=== PATIENT | female | born 1965 | race Caucasian/White ===

== ENCOUNTER 2020-03-19 04:14 | Observation (INO) | payer OTHER ==
[~2020-03-19] VITALS: Ht 157.5 cm; Wt 71.8 kg
--- NOTE | 2020-03-19 04:49 | NUR ---
55/F. Pt starting vomitting around 0100. Abd pain mid-epigastric region. Denies diarrhea. Pt reports chills.
[2020-03-19] MEDS ORDERED: SODIUM CHLORIDE FLUSH 10ML SYR IVF ONE (05:00)
[2020-03-19] MEDS ORDERED: MORPHINE SULFATE 4 MG/ML, 1ML IVPush PRN ×2 (05:00→07:30)
[2020-03-19] MEDS ORDERED: SODIUM CHLORIDE 0.9% 1,000ML IVBOLUS ONE (05:00)
[2020-03-19] MEDS ORDERED: ONDANSETRON 2MG/ML, 2ML IVPush ONE (05:00)
[2020-03-19] MEDS ORDERED: MORPHINE SULFATE 4 MG/ML, 1ML ONE ×2 (05:23→07:34)
[2020-03-19] MEDS ORDERED: ONDANSETRON 2MG/ML, 2ML ONE ×2 (05:23→11:37)
[2020-03-19 05:34] LABS: ALBUMIN 4.2 g/dL (3.4-5.0); ANION GAP 7 mmol/L (5-15); CHLORIDE 106 mmol/L (98-107)
[2020-03-19 05:38] LABS: ALANINE AMINOTRANSFERASE 48 U/L (12-78); ALKALINE PHOSPHATASE 129 U/L (45-117); BILIRUBIN,TOTAL 0.5 mg/dL (0.2-1.0); CREATININE 0.89 mg/dL (0.55-1.02); TOTAL PROTEIN 8.3 g/dL (6.4-8.2)
[2020-03-19 05:48] LABS: BASOPHILS # (AUTO) 0.03 x10^3/uL (0-0.1); BASOPHILS % (AUTO) 0 % (0-1); EOSINOPHILS # (AUTO) 0.01 x10^3/uL (0-0.4); EOSINOPHILS % (AUTO) 0 % (1-7); LYMPHOCYTES # (AUTO) 1.66 x10^3/uL (1-3.4); LYMPHOCYTES % (AUTO) 14 % (22-44); MD NO; MEAN CORPUSCULAR HGB CONC 32.6 g/dL (32.4-35.8); MEAN PLATELET VOLUME 8.4 fL (7.4-10.4); MONOCYTES # (AUTO) 0.22 x10^3/uL (0.2-0.8); MONOCYTES % (AUTO) 2 % (2-9); NEUTROPHILS # (AUTO) 10.21 x10^3/uL (1.8-6.8); NEUTROPHILS % (AUTO) 84 % (42-75); PLATELET COUNT 239 x10^3/uL (130-400); RED BLOOD COUNT 5.59 x10^6/uL (3.82-5.3)
[2020-03-19] MEDS ORDERED: SODIUM CHLORIDE 0.9% 1,000 ML IV ONE (07:10)
[2020-03-19] MEDS ORDERED: SODIUM CHLORIDE FLUSH 10ML SYR IVF PRN (07:30)
[2020-03-19] MEDS ORDERED: CEFOTETAN PMX 1GM/50ML 50 ML IV ONE (07:30)
[2020-03-19] MEDS ORDERED: ONDANSETRON 2MG/ML, 2ML IVPush PRN ×3 (07:30→15:30)
[2020-03-19] MEDS ORDERED: CEFOTETAN PMX 1GM/50ML 50 ML ONE (07:33)
[2020-03-19] MEDS ORDERED: METOCLOPRAMIDE 5 MG/ML, 2ML ONE (07:36)
[2020-03-19 07:47] LABS: MICROSCOPIC AUTO
[2020-03-19] MEDS ORDERED: METOCLOPRAMIDE 5 MG/ML, 2ML IVPush ONE (08:00)
[2020-03-19 09:53] VITALS: BP 164/81
[2020-03-19] MEDS ORDERED: IBUP-1623 PO (10:00)
[2020-03-19] MEDS ORDERED: [UNRECOGNIZED DRUG - OTHER] PO (10:00)
[2020-03-19] MEDS ORDERED: CARDIO PO (10:00)
[2020-03-19] MEDS ORDERED: MIDAZOLAM 1 MG/ML, 2ML ONE (11:36)
[2020-03-19] MEDS ORDERED: FENTANYL PF 250 MCG/5ML ONE (11:37)
[2020-03-19] MEDS ORDERED: ROCURONIUM 10 MG/ML,10ML ONE (11:37)
[2020-03-19] MEDS ORDERED: PROPOFOL 10 MG/ML, 20ML ONE (11:37)
[2020-03-19] MEDS ORDERED: CEFAZOLIN 1,000 MG ONE ×2 (11:37)
[2020-03-19] MEDS ORDERED: EPINEPHRINE 1 MG/ML, 1ML ONE (11:46)
[2020-03-19] MEDS ORDERED: BUPIVACAINE/PF 0.5% ONE (11:46)
[2020-03-19] MEDS ORDERED: SUGAMMADEX 200 MG/2 ML IVPush ONE (12:19)
[2020-03-19] MEDS ORDERED: DIAZEPAM 5 MG/ML, 2ML IVPush PRN (12:30)
[2020-03-19] MEDS ORDERED: OXYcodone 5 MG/5 ML ORAL.SOL UDC PO PRN (12:30)
[2020-03-19] MEDS ORDERED: PROMETHAZINE 25 MG/ML, 1ML IVPush PRN (12:30)
[2020-03-19] MEDS ORDERED: MEPERIDINE/PF 25MG/0.5ML IVPush PRN (12:30)
[2020-03-19] MEDS ORDERED: HYDROmorphone 1 MG/ML, 1ML INJ IVPush PRN (12:30)
[2020-03-19] MEDS ORDERED: ACETAMINOPHEN 325 MG TABLET PO PRN (12:30)
[2020-03-19] MEDS ORDERED: DIPHENHYDRAMINE 50 MG/ML, 1ML IVPush PRN (12:30)
[2020-03-19] MEDS ORDERED: BUPIVACAINE/PF-EPI 0.5% 1:200K INFIL ONE (12:50)
[2020-03-19] MEDS ORDERED: OXYcodone 5 MG/5 ML ORAL.SOL UDC ONE (13:27)
[2020-03-19] MEDS ORDERED: FENTANYL PF 100 MCG/2ML ONE (13:27)
[2020-03-19] MEDS: FENTANYL PF 100 MCG/2ML IV PRN ×4 (13:29→14:00)
[2020-03-19 15:05] VITALS: BP 98/63
[2020-03-19] MEDS ORDERED: OXYcodone/APAP 5/325MG TABLET PO PRN (15:30)
[2020-03-19] MEDS ORDERED: morphine SULFATE 10 MG/ML, 1ML IVPush PRN (15:30)
[2020-03-19] MEDS ORDERED: LACTATED RINGERS 1,000 ML IV SCH (15:30)
[2020-03-19] MEDS ORDERED: ONDA4TAB7 PO ×2 (17:31→17:32)
[2020-03-19] MEDS ORDERED: OXYC-302 PO (17:34)
[2020-03-19 18:23] VITALS: BP 100/68
[2020-03-19 20:30] VITALS: BP 102/69
== END 2020-03-19 20:40 | disposition home or self-care (01) ==
LOC: ED 06:48 → 3N 08:34 → INTOOBSV 08:34
PROVIDERS: ADMIT Surgery; ATTEND Surgery
DX: K81.0 Acute cholecystitis (principal); Z20.828 Contact with and (suspected) exposure to other viral communicable diseases; Z88.0 Allergy status to penicillin
CPT/HCPCS: 36415; 47562; 76700; 80053; 81001; 83690; 85025; 87635; 88304; 93005; 96365; 96375; 96376; 99285; G0378; J0171; J0690; J2250; J2270; J2405; J2704; J2765; J3010; J3490; J7030; S0020